=== PATIENT | male | born 1975 | race Caucasian/White ===

== ENCOUNTER 2021-07-01 06:48 | Emergency (ER) | payer OTHER ==
[~2021-07-01] VITALS: Ht 177.8 cm; Wt 118.8 kg
[~2021-07-01 06:48] MED LIST: ATIVAN1 MG PO; FAMOTIDINE20 MG PO; HYDROCODON-ACE1 EAC7 PO; LORAZEPAM 1 MG T1 M1 PO; MINOCYCLINE HC100 M2 PO; NICOTINE TRANSD21 M1; NOHOMEMEDICATIONS; ONDANSETRON HCL4 M3 PO; TESSALON200 MG PO; VOLTAREN 0.1% EY5 M1 OP
[2021-07-01 09:21] VITALS: BP 144/67
== END 2021-07-01 10:47 | disposition home or self-care (01) ==
LOC: ER 06:48
DX: F10.129 Alcohol abuse with intoxication, unspecified (principal); F41.9 Anxiety disorder, unspecified; I10 Essential (primary) hypertension; Z79.891 Long term (current) use of opiate analgesic; Z79.899 Other long term (current) drug therapy; Z88.8 Allergy status to other drugs, medicaments and biological substances